=== PATIENT | female | born 1960 | race Caucasian/White ===

== ENCOUNTER 2023-12-20 06:57 | Day surgery (SDC) | payer MEDICARE, MEDICAID ==
[2023-12-14 11:24] LABS: BASOPHILS % (AUTO) 0.6 % (0-1); EOSINOPHILS # (AUTO) 0.1 X10'3 (0-0.9); EOSINOPHILS % (AUTO) 0.7 % (0-6); LYMPHOCYTES # (AUTO) 2.1 X10'3 (1.1-4.8); LYMPHOCYTES % (AUTO) 25.2 % (21-51); MEAN CORPUSCULAR HEMOGLOBIN 31.6 PG (27.0-31.0); MEAN CORPUSCULAR HGB CONC 33.6 g/dL (33.0-36.5); MEAN PLATELET VOLUME 7.8 FL (7.4-10.4); MONOCYTES # (AUTO) 0.6 X10'3 (0-0.9); MONOCYTES % (AUTO) 6.7 % (2-12); NEUTROPHILS # (AUTO) 5.7 X10'3 (1.8-7.7); NEUTROPHILS % (AUTO) 66.8 % (42-75); PRE OP HEMATOCRIT 36.7 % (35.0-45.0); PRE OP HEMOGLOBIN 12.3 g/dL (12.0-16.0); PRE OP PLATELET COUNT 210 X10'3 (140-440); PRE OP WHITE BLOOD COUNT 8.5 10'3 (4.8-10.8); RED CELL DISTRIBUTION WIDTH 12.8 % (11.5-14.5)
[2023-12-14 11:47] LABS: ALBUMIN 3.3 G/DL (3.4-5.0); ALKALINE PHOSPHATASE 84 IU/L (46-116); BLOOD UREA NITROGEN 17 MG/DL (7-18); BUN/CREATININE RATIO 27.9 (10.0-20.0); CALCIUM 9.1 MG/DL (8.5-10.1); CHLORIDE 107 MMOL/L (99-107); CREATININE 0.61 MG/DL (0.40-0.90); PRE OP ALT 25 U/L (30-65); PRE OP ANION GAP 5 (8-16); PRE OP AST 18 U/L (10-37); PRE OP BILIRUB, TOTAL 0.3 MG/DL (0.0-1.0); PRE OP GLUCOSE 109 MG/DL (70-104); PRE OP POTASSIUM 4.1 MMOL/L (3.4-5.1); PRE OP SODIUM 141 MMOL/L (135-145); TOTAL CARBON DIOXIDE 29.3 MMOL/L (24-32); TOTAL PROTEIN 6.7 G/DL (6.4-8.2); eGFR > 90 ML/MIN
[~2023-12-20] VITALS: Ht 149.9 cm; Wt 70.3 kg
[2023-12-20] VITALS (7 sets, daily range): BP systolic 122–161; BP diastolic 49–73; PULSE 62–80; RESP 16–21; TEMP 98; O2SAT 93–99
[2023-12-20] MEDS: cefazolin 2gm/D5W 100mL 100 ML IV ONE (05:30)
[~2023-12-20 06:57] MED LIST: AZEL137S4 BOTHNARES; FLUT1BLS4 INH; LOSA-416 PO; ROSU5TAB43 PO
[2023-12-20] MEDS: famotidine 20mg tablet PO ONE (07:43)
[2023-12-20] MEDS: ringers solution, lacted 1,000 ML IV SCH (07:43)
[2023-12-20] MEDS ORDERED: LIDOcaine 1% 30ml preserv. free vial ONE (08:25)
[2023-12-20] MEDS ORDERED: fentaNYL/PF 50MCG/1 ML 2ML syringe ONE (08:34)
[2023-12-20] MEDS ORDERED: MIDAZolam 1 MG/ML 5ML VIAL ONE (08:35)
[2023-12-20] MEDS: BUPIVAcaine 2.5mg/ml inj 50ml vial (contains preservative) SQ ONE (08:47)
[2023-12-20] MEDS: BUPIVAcaine/PF 2.5mg/ml (0.25%) 10ml vial ONE (09:35)
[2023-12-20] MEDS ORDERED: ketorolac trometh 30MG/ML vial 30 MG/ML VIAL ONE (09:46)
[2023-12-20] MEDS ORDERED: BUPIVAcaine/PF 2.5mg/ml (0.25%) 10ml vial ONE (11:00)
[2023-12-20] MEDS ORDERED: LIDOcaine 2% (20mg/ml) 5ml vial ONE (11:03)
== END 2023-12-20 10:55 | disposition home or self-care (01) ==
LOC: PAS 06:57
PROVIDERS: ATTEND Orthopaedic Surgery Hand Surgery
DX: G56.02 Carpal tunnel syndrome, left upper limb (principal); M18.12 Unilateral primary osteoarthritis of first carpometacarpal joint, left hand; I10 Essential (primary) hypertension; E11.9 Type 2 diabetes mellitus without complications; E78.5 Hyperlipidemia, unspecified; J44.89 Other specified chronic obstructive pulmonary disease; M19.90 Unspecified osteoarthritis, unspecified site; F17.210 Nicotine dependence, cigarettes, uncomplicated; Z79.1 Long term (current) use of non-steroidal anti-inflammatories (NSAID); Z79.2 Long term (current) use of antibiotics; Z79.891 Long term (current) use of opiate analgesic; Z79.899 Other long term (current) drug therapy; Z98.891 History of uterine scar from previous surgery; Z98.890 Other specified postprocedural states; Z88.5 Allergy status to narcotic agent; Z82.49 Family history of ischemic heart disease and other diseases of the circulatory system
CPT/HCPCS: 36415; 80053; 82948; 85025; A4215; A4618; A6449; J0690; J1885; J2250; J3010; J3490; J7120

== ENCOUNTER 2024-03-21 05:08 | Day surgery (SDC) | payer MEDICARE, MEDICAID ==
[2024-03-17 12:46] LABS: BASOPHILS % (AUTO) 0.2 % (0-1); EOSINOPHILS # (AUTO) 0.1 X10'3 (0-0.9); EOSINOPHILS % (AUTO) 1.4 % (0-6); HEMATOCRIT 39.8 % (35.0-45.0); HEMOGLOBIN 13.7 g/dl (12.0-16.0); LYMPHOCYTES # (AUTO) 2.6 X10'3 (1.1-4.8); LYMPHOCYTES % (AUTO) 33.3 % (21-51); MEAN CORPUSCULAR HEMOGLOBIN 31.4 PG (27.0-31.0); MEAN CORPUSCULAR HGB CONC 34.3 g/dL (33.0-36.5); MEAN CORPUSCULAR VOLUME 91.6 FL (78-98); MEAN PLATELET VOLUME 8.8 FL (7.4-10.4); MONOCYTES # (AUTO) 0.7 X10'3 (0-0.9); MONOCYTES % (AUTO) 8.9 % (2-12); NEUTROPHILS # (AUTO) 4.3 X10'3 (1.8-7.7); NEUTROPHILS % (AUTO) 56.2 % (42-75); PLATELET COUNT 257 X10'3 (140-440); RED BLOOD COUNT 4.35 X10'6 (4.20-5.60); RED CELL DISTRIBUTION WIDTH 12.9 % (11.5-14.5); WHITE BLOOD COUNT 7.7 X10'3 (4.5-11.0)
[2024-03-17 12:47] LABS: APTT 25 SECONDS (22-32)
[2024-03-17 13:11] LABS: ALBUMIN 3.7 G/DL (3.4-5.0); ANION GAP 8 (8-16); BLOOD UREA NITROGEN 17 MG/DL (7-18); BUN/CREATININE RATIO 26.6 (10.0-20.0); CALCIUM 9.2 MG/DL (8.5-10.1); CHLORIDE 103 MMOL/L (99-107); CHOL/HDL RATIO 5.7 (0.00-4.99); CHOLESTEROL 245 MG/DL (0-200); CREATININE 0.64 MG/DL (0.40-0.90); HDL CHOLESTEROL 43 MG/DL (35-60); LDL CHOLESTEROL 123 MG/DL (50-100); POTASSIUM 4.2 MMOL/L (3.5-5.1); SODIUM 140 MMOL/L (135-145); TOTAL CARBON DIOXIDE 29.4 MMOL/L (24-32); TRIGLYCERIDES 540 MG/DL (20-135); eGFR > 90 ML/MIN
[2024-03-17 13:18] LABS: GLUCOSE 84 MG/DL (70-104)
[2024-03-21] VITALS (10 sets, daily range): BP systolic 135–169; BP diastolic 48–71; PULSE 67–79; RESP 13–17; TEMP 98.1; O2SAT 95–97
[~2024-03-21] VITALS: Ht 149.9 cm; Wt 70.2 kg
[~2024-03-21 05:08] MED LIST changes: -ROSU5TAB43 PO; +ROSU5TAB51 PO
[2024-03-21] MEDS ORDERED: GING550C4 (05:50)
[2024-03-21] MEDS ORDERED: ASCO1TAB42 (05:50)
[2024-03-21] MEDS ORDERED: ASCO100031 PO (05:50)
[2024-03-21] MEDS ORDERED: MAGN400C PO (05:50)
[2024-03-21] MEDS ORDERED: Tumeric PO (05:50)
[2024-03-21] MEDS ORDERED: LIDO700A32 TOP (05:50)
[2024-03-21] MEDS ORDERED: UBID100C16 PO (05:50)
[2024-03-21] MEDS ORDERED: CALC-855 PO (05:50)
[2024-03-21] MEDS ORDERED: FLAX SEED (05:50)
[2024-03-21] MEDS ORDERED: ASPI-1265 PO (05:50)
[2024-03-21] MEDS ORDERED: ALBU2.5V10 NEB (05:53)
[2024-03-21] MEDS: LORazepam 0.5 MG tablet PO PRN (06:07)
[2024-03-21] MEDS: diphenhydrAMINE 25mg capsule PO PRN (06:07)
[2024-03-21] MEDS: normal saline 1,000 ML IV SCH (06:07)
[2024-03-21] MEDS ORDERED: ALBU8HFA INH (06:12)
[2024-03-21] MEDS ORDERED: LIDOcaine 1% 30ml preserv. free vial ONE (06:21)
[2024-03-21] MEDS ORDERED: verapamil 2.5 mg/ml inj IV ONE (06:21)
[2024-03-21] MEDS ORDERED: fentaNYL/PF 50MCG/1 ML 2ML syringe ONE (06:21)
[2024-03-21] MEDS ORDERED: midazolam 1 mg/ML 2ml injection ONE (06:21)
[2024-03-21] MEDS ORDERED: heparin 1,000unit/ml 10ml vial 10 ML ONE (06:22)
[2024-03-21] MEDS ORDERED: iohexol 350MG/ML 100ml bottle IV ONE (06:22)
[2024-03-21] MEDS ORDERED: nitroGLYCERIN 500mcg/5mL D5W 5 ML IV ONE ×2 (06:37→06:47)
[2024-03-21] MEDS ORDERED: hydrALAZINE 20mg/ml inj. ONE (07:29)
[2024-03-21 07:53] LABS: ISTAT HGB ART 12.9 g/dl (12.0-16.0); ISTAT Hct ART 38 %PCV (35-45); ISTAT O2 SATURATION ARTERIAL 90 % (95-98); ISTAT SOURCE ART
[2024-03-21 10:37] LABS: ISTAT HGB MIX 12.2 g/dl (12.0-16.0); ISTAT Hct MIX 36 %PCV (35-45); ISTAT O2 SATURATION MIX VENOUS 61 % (60-80); ISTAT SOURCE VEN
== END 2024-03-21 10:35 | disposition home or self-care (01) ==
LOC: SSTAY O 05:08
PROVIDERS: ATTEND Internal Medicine Interventional Cardiology
DX: I35.0 Nonrheumatic aortic (valve) stenosis (principal); I10 Essential (primary) hypertension; J44.9 Chronic obstructive pulmonary disease, unspecified; E78.5 Hyperlipidemia, unspecified; F32.A Depression, unspecified; Z79.899 Other long term (current) drug therapy; Z88.8 Allergy status to other drugs, medicaments and biological substances; Z88.6 Allergy status to analgesic agent; Z86.0100 Personal history of colon polyps, unspecified; Z79.01 Long term (current) use of anticoagulants
CPT/HCPCS: 36415; 80048; 80061; 82803; 85014; 85025; 85610; 85730; 93005; 93456; 99152; A6258; C1751; C1760; J0360; J1644; J2003; J2250; J3010; J3490; J7030; Q0163; Q9967; Z7610; 99153

== ENCOUNTER 2024-11-30 11:55 | Outpatient (CLI) | payer MEDICARE, MEDICAID ==
[~2024-11-30 11:55] MED LIST changes: +ALBU2.5V10 NEB; +ALBU8HFA INH; +ASCO10004 PO; +ASPI-1265 PO; +BIOT25008 PO; +CALC500T63 PO; +CHOL25CA2 PO; +MAGN400C PO; +PRED5TAB PO; +RED500CA PO; +TURM500T PO; +UBID100C16 PO; +[UNRECOGNIZED DRUG - CODE] PO
--- NOTE | 2024-11-30 15:00 | RADIOLOGY REPORT ---
Sniff test by fluoroscopy HISTORY: Possible diaphragm paralysis. With the patient in an upright position and under direct fluoroscopic evaluation she was asked to perform deep inspiration and expiration as well as rapid sniff maneuvers. It is noted that the right hemidiaphragm responds fairly well to the sniff test with brisk excursion downward. However the left hemidiaphragm demonstrates relatively minimal movement. However, there is no evidence of direct paradoxical superior motion of the left hemidiaphragm with this sniff test. Total fluoroscopy time was 1.2 minutes with dose 67.88 mGy. IMPRESSION: Minimal movement of the left hemidiaphragm with sniff test. Downward excursion demonstrated right hemidiaphragm with sniff test.
== END 2024-11-30 23:59 | disposition home or self-care (01) ==
LOC: RAD 11:55
PROVIDERS: ATTEND Physician Assistant Surgical
DX: J98.6 Disorders of diaphragm (principal)
CPT/HCPCS: 71048